=== PATIENT | female | born 1955 | race Caucasian/White ===

== ENCOUNTER 2024-03-08 06:20 | Day surgery (SDC) | payer OTHER, SELFPAY ==
[2024-03-08] VITALS (15 sets, daily range): BP systolic 117–150; BP diastolic 73–96; BMI 36.1
[2024-03-08] MEDS: NORMOSOL-R/PLASMALYTE-A 1000 IV (09:27)
--- NOTE | 2024-03-08 11:49 | SUR.PHASEI ---
02 sats low on room air, some upper airway congestion present. stir up in use. Arely Tinajero RN BSN.
[2024-03-08] MEDS: TYLENOL 650 MG PO (12:04)
[2024-03-08] MEDS: ROXICODONE 5 MG PO (12:33)
== END 2024-03-08 14:03 | disposition home or self-care (01) ==
LOC: SDS 06:20
PROVIDERS: ATTENDING PHYSICIAN Otolaryngology
DX: H72.01 Central perforation of tympanic membrane, right ear (principal); H90.2 Conductive hearing loss, unspecified
CPT/HCPCS: 69631

== ENCOUNTER 2025-03-07 10:22 | Inpatient (IN) | payer OTHER, SELFPAY ==
--- NOTE | 2025-02-12 13:51 | CM ---
Addendum entered by Rowena Gilbert RN 02/26/25 13:51:
Left message for IA.
Addendum entered by Rowena Gilbert RN 02/22/25 15:16:
CM reviewed medical records. PATRICK left message to discuss discharge planning.
PLAN: home with outpatient PT.
Original Note:
PATRICK left message to discuss discharge planning.
[2025-02-18 11:28] VITALS: BMI 38.3
[2025-02-18 11:38] LABS: Hematocrit 42.5 % (37.0-47.0); Hemoglobin 13.7 g/dL (12.0-16.0); Mean Corp Hgb Conc. 32.2 g/dL (33.0-37.0); Mean Corpuscular Volume 85.9 fL (81.0-99.0); Platelet Count 276 10^3/uL (130-400); Red Cell Dist. Width 14.5 % (11.5-14.5)
[2025-02-18 12:07] LABS: ALT (SGPT) 18 U/L (0-35); AST (SGOT) 21 U/L (14-36); Albumin 4.5 g/dl (3.5-5.0); Alkaline Phosphatase 39 U/L (38-126); Blood Urea Nitrogen 14 mg/dl (7-17); Calcium 9.2 mg/dl (8.4-10.2); Carbon Dioxide 26 mmol/L (22-30); Chloride 106 mmol/L (98-107); Estimated Creatinine Clearance 82 ml/min; Glucose 80 mg/dl (70-99); Potassium 4.4 mmol/L (3.5-5.1); Sodium 140 mmol/L (135-145); Total Protein 6.9 g/dl (6.3-8.2); eGFR > 60.00
[2025-02-18 13:32] LABS: Glycohemoglobin (HgbA1c) 6.2 % (4.0-5.6)
[2025-03-07] VITALS (10 sets, daily range): BP systolic 130–146; BP diastolic 76–96; BMI 38.3
[2025-03-07] MEDS: CELEBREX 200 MG PO (10:48)
[2025-03-07] MEDS: TYLENOL 650 MG PO (10:48)
[2025-03-07] MEDS: NORMOSOL-R/PLASMALYTE-A 1000 IV ×2 (10:48→17:21)
--- NOTE | 2025-03-07 12:40 | W.PN.ORTHO ---
Today's Communication / Plan
-
d/c when stable
Assessment
.
Dressing:
Clean, dry and intact.
Assessment:
Questionable history of remote blood clot--likely superficial thrombophlebitis
-SCD advised + ASA 325mg and frequent ambulation.
Pain control.
-[place] due to questionable prior history of N/V secondary to oxycodone.
Plan
.
Surgery / Date: R TKA Dr Norris 03/07/25
DVT Prophylaxis: Aspirin
Activity:
Out of bed.
PT/OT
Discharge Plan: Home w/ Outpatient PT
Vital Signs and Labs
.
Vital Signs and Labs:
Lab Results
02/18/25 10:57
02/18/25 10:57
Temp Pulse Resp BP Pulse Ox
98.9 F 76 12 140/96 94
03/07/25 10:40 03/07/25 10:40 03/07/25 10:40 03/07/25 10:40 03/07/25 10:40
--- NOTE | 2025-03-07 12:46 | W.DS.TRANS ---
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
-
Discharge Instructions:
Discharge Diagnosis/Procedures R TKA Dr Norris 03/07/25
Diet As tolerated
Activity With Walker
Driving Restrictions No driving
Bathing Restrictions OK to Shower
Other Services PT
Instructions:
Stand-Alone Forms: Total Hip/Knee Replacement D/C
Changes to Home Medications: Yes
Discharge Medications:
DC Medications w/original date entered in [employer]
atorvastatin 20 mg tablet 20 mg PO DAILY 03/06/24
cholecalciferol (vitamin D3) 50 mcg (2,000 unit) capsule (Vitamin D3) 50 mcg PO DAILY 03/06/24
omeprazole 40 mg capsule,delayed release 40 mg PO DAILY 03/06/24
venlafaxine 150 mg capsule,extended release 24 hr 150 mg PO DAILY 03/06/24
multivitamin 1 tab PO DAILY 02/15/25
Held on 03/07/25. Instructions: Resume on 03/15/25.
mupirocin 2 % topical ointment 1 applic topical BID infection prevention #1 tube 02/15/25
dexamethasone 4 mg tablet 4 mg PO BID inflammation #6 tabs 02/18/25
gabapentin 300 mg capsule 300 mg PO HS sleep/pain #10 caps 02/18/25
hydrocodone 5 mg-acetaminophen 325 mg tablet 1 tab PO Q6H PRN 1 tab moderate pain or 2 if severe #30 tabs 02/18/25
meloxicam 15 mg tablet 15 mg PO DAILY anti-inflammatory #14 tabs 02/18/25
ondansetron 4 mg disintegrating tablet 4 mg PO Q6H PRN n/v #20 tabs 02/18/25
acetaminophen 650 mg tablet,extended release 1,300 mg (2 x 650 mg) PO TID #0 tabs 03/07/25
aspirin 325 mg tablet 325 mg PO DAILY blood clot prevention #1 tab 03/07/25
docusate sodium 100 mg capsule (Colace) 100 mg PO BID stool softner #1 cap 03/07/25
magnesium hydroxide 400 mg/5 mL oral suspension (Milk of Magnesia) 30 ml PO HS PRN constipation #1 mL 03/07/25
sennosides 8.6 mg tablet (Senokot) 17.2 mg (2 x 8.6 mg) PO BID laxative #2 tabs 03/07/25
Home Medication Changes
mupirocin 2 % topical ointment 1 applic topical BID infection prevention #1 tube 02/15/25
dexamethasone 4 mg tablet 4 mg PO BID inflammation #6 tabs 02/18/25
gabapentin 300 mg capsule 300 mg PO HS sleep/pain #10 caps 02/18/25
hydrocodone 5 mg-acetaminophen 325 mg tablet 1 tab PO Q6H PRN 1 tab moderate pain or 2 if severe #30 tabs 02/18/25
meloxicam 15 mg tablet 15 mg PO DAILY anti-inflammatory #14 tabs 02/18/25
ondansetron 4 mg disintegrating tablet 4 mg PO Q6H PRN n/v #20 tabs 02/18/25
acetaminophen 650 mg tablet,extended release 1,300 mg (2 x 650 mg) PO TID #0 tabs 03/07/25
aspirin 325 mg tablet 325 mg PO DAILY blood clot prevention #1 tab 03/07/25
docusate sodium 100 mg capsule (Colace) 100 mg PO BID stool softner #1 cap 03/07/25
magnesium hydroxide 400 mg/5 mL oral suspension (Milk of Magnesia) 30 ml PO HS PRN constipation #1 mL 03/07/25
sennosides 8.6 mg tablet (Senokot) 17.2 mg (2 x 8.6 mg) PO BID laxative #2 tabs 03/07/25
Pending Results: No
[2025-03-07] MEDS: NORCO 7.5/325 1 TABLET PO (16:05)
[2025-03-07] MEDS: ASPIRIN 325 MG PO (17:43)
--- NOTE | 2025-03-07 18:14 | PTCARENOTE ---
Pt arrived to [facility] s/p R TKA. Right knee Mepilex c/d/i. Teds and foot pumps on pt. 95% on 2L. Admission questions answered. Bed locked and in lowest position. Care ongoing.
[2025-03-07] MEDS: ANCEF 5 IV (18:36)
[2025-03-07] MEDS: NORCO 5/325 2 TABLET PO (20:03)
[2025-03-07] MEDS: SENOKOT 17.2 MG PO (20:04)
[2025-03-07] MEDS: COLACE 100 MG PO (20:07)
[2025-03-07] MEDS: TORADOL 15 MG IV (20:07)
[2025-03-07] MEDS: DECADRON 4 MG IV (20:08)
[2025-03-07] MEDS: BACTROBAN 2% OINTMENT 1 APPLIC NASAL (20:30)
[2025-03-07] MEDS: PROTONIX 40 MG PO (22:15)
[2025-03-07] MEDS: NEURONTIN 300 MG PO (22:15)
[2025-03-08] MEDS: ANCEF 5 IV (02:42)
[2025-03-08] MEDS: NORCO 5/325 2 TABLET PO ×2 (02:53→08:21)
[2025-03-08 03:01] VITALS: BP 139/76
[2025-03-08 07:00] VITALS: BP 137/81
--- NOTE | 2025-03-08 07:29 | W.PN.ORTHO ---
Today's Communication / Plan
-
PT today and plan for discharge home with outpatient PT Tuesday. May require 2 sessions of PT today
Assessment
.
Distal Motor Intact: Yes
Dressing:
Clean, dry and intact.
Assessment:
Stable postop
Plan
.
Surgery / Date: R TKA Dr Norris 03/07/25
DVT Prophylaxis: Aspirin
Activity:
Out of bed.
PT/OT
Subjective
.
.:
Patient resting comfortably.
Did not receive PT yesterday.
Vital Signs and Labs
.
Vital Signs and Labs:
Lab Results
02/18/25 10:57
02/18/25 10:57
Temp Pulse Resp BP Pulse Ox
98.1 F 87 16 137/81 94
03/08/25 07:00 03/08/25 07:00 03/08/25 07:00 03/08/25 07:00 03/08/25 07:00
Physical Exam
-
Pulm: nonlabored
CV: regular
RLE: Stable drainage distal dressing. Calf soft. Able to fully extend. NVI distally
[2025-03-08] MEDS: COLACE 100 MG PO (08:19)
[2025-03-08] MEDS: LIPITOR 20 MG PO (08:19)
[2025-03-08] MEDS: SENOKOT 17.2 MG PO (08:21)
[2025-03-08] MEDS: EFFEXOR XR 150 MG PO (08:21)
[2025-03-08] MEDS: TORADOL 15 MG IV (08:21)
[2025-03-08] MEDS: ASPIRIN 325 MG PO (08:21)
[2025-03-08] MEDS: DECADRON 4 MG IV (08:26)
[2025-03-08] MEDS: BACTROBAN 2% OINTMENT 1 APPLIC NASAL (08:27)
--- NOTE | 2025-03-08 08:37 | CM ---
Cm reviewed medical records. CM met with patient in room. Patient confirmed demographics. Patient lives alone, but will have the assistance of her friend and daughter. Patient does not have ahistory of VN, SNF. Patient has a walker, cane, ice packs.
Patient confirmed her appointment for outpatient PT with [facility] on 03/11.
PLAN: Home with outpatient PT.
[2025-03-08 09:40] VITALS: BP 129/68; BP 131/66; PULSE 89; O2SAT 93
[2025-03-08 11:00] VITALS: BP 134/70
[2025-03-08 11:32] VITALS: BP 116/62; BP 134/70; PULSE 73; O2SAT 96
--- NOTE | 2025-03-08 12:58 | W.PN.ORTHO ---
Today's Communication / Plan
-
d/c
Assessment
.
Distal Motor Intact: Yes
Dressing:
Clean, dry and intact.
Assessment:
Questionable history of remote blood clot--likely superficial thrombophlebitis
-SCD advised + ASA 325mg and frequent ambulation.
Pain control.
-[place] due to questionable prior history of N/V secondary to oxycodone.
Plan
.
Surgery / Date: R TKA Dr Norris 03/07/25
DVT Prophylaxis: Aspirin
Activity:
Out of bed.
PT/OT
Discharge Plan: Home w/ Outpatient PT
Subjective
.
.:
Patient resting comfortably.
Vital Signs and Labs
.
Vital Signs and Labs:
Lab Results
02/18/25 10:57
02/18/25 10:57
Temp Pulse Resp BP Pulse Ox
97.8 F 78 18 134/70 95
03/08/25 11:00 03/08/25 11:00 03/08/25 11:00 03/08/25 11:00 03/08/25 11:00
Physical Exam
-
HEENT: No pallor, cyanosis, or jaundice. Throat clear.
NECK: Supple. No JVD.
RESPIRATORY: Lungs clear to auscultation.
CVS: S1, S2 normal. RRR.� No murmur, rub or gallop.
ABDOMEN: Soft, non-tender. No distension. BS+/normal.
EXTREMITIES: strength equal, no calf pain with palpation
VAT WASHER: AOx3. No focal deficits. deicer element winder machine grossly intact.
== END 2025-03-08 13:50 | disposition home or self-care (01) | DRG 470 ==
LOC: 2 SOUTH 10:22
PROVIDERS: ADMITTING PHYSICIAN Orthopaedic Surgery; FAMILY PHYSICIAN Internal Medicine
PROC: 0SRC0J9 Replacement of Right Knee Joint with Synthetic Substitute, Cemented, Open Approach (ICD-10-PCS; 2025-03-07)
DX: M17.11 Unilateral primary osteoarthritis, right knee (principal); D18.02 Hemangioma of intracranial structures; E66.9 Obesity, unspecified; E78.5 Hyperlipidemia, unspecified; F32.A Depression, unspecified; F41.9 Anxiety disorder, unspecified; G47.33 Obstructive sleep apnea (adult) (pediatric); K21.9 Gastro-esophageal reflux disease without esophagitis; Z68.35 Body mass index [BMI] 35.0-35.9, adult; Z86.19 Personal history of other infectious and parasitic diseases; Z86.72 Personal history of thrombophlebitis; Z88.0 Allergy status to penicillin; Z79.899 Other long term (current) drug therapy
CPT/HCPCS: 36415; 73560; 80053; 83036; 85027; 87070; 93005; 97110; 97116; 97162; 97166; 97530; 97535; C1713; C1776